=== PATIENT | female | born 1965 | race African-American/Black ===

== ENCOUNTER 2018-12-28 12:45 | Emergency (ER) | payer OTHER ==
[~2018-12-28] VITALS: Ht 160 cm; Wt 75.5 kg
[~2018-12-28 12:45] MED LIST: AMLO-145 ORAL; FAMO-96 PO; METO-319 ORAL
[2018-12-28 12:58] VITALS: Ht 160 cm; Wt 75.5 kg
[2018-12-28] MEDS ORDERED: FAMOTIDINE 20 MG TAB PO STA (16:16)
[2018-12-28] MEDS ORDERED: LIDOCAINE/MYLANTA 40 ML BTL PO STA (16:16)
[2018-12-28 19:02] VITALS: BP 140/85; PULSE 70; RESP 18
== END 2018-12-28 19:05 | disposition home or self-care (01) ==
LOC: E/R 12:45
DX: R07.9 Chest pain, unspecified (principal); R10.9 Unspecified abdominal pain; I10 Essential (primary) hypertension
CPT/HCPCS: 71045; 76705; 80053; 83880; 84484; 85025; 85610; 93005; Z7502; Z7610